=== PATIENT | male | born 1970 | race Caucasian/White ===

== ENCOUNTER 2022-09-18 16:47 | Emergency (ER) | payer MEDICAID ==
[~2022-09-18] VITALS: Ht 180.3 cm; Wt 96.6 kg
[2022-09-18 16:53] VITALS: BP 165/117
[2022-09-18] MEDS ORDERED: normal saline 1000ml 1,000 ML IV ONE (17:10)
[2022-09-18] MEDS ORDERED: ondansetron/PF 4mg/2ml inj IM ONE (17:10)
[2022-09-18] MEDS ORDERED: morphine 4 MG/ML inj SYRINge IV ONE (17:10)
[2022-09-18 17:26] LABS: BASOPHILS # (AUTO) 0.1 X10'3 (0-0.2); BASOPHILS % (AUTO) 0.9 % (0-1); EOSINOPHILS # (AUTO) 0.1 X10'3 (0-0.9); EOSINOPHILS % (AUTO) 0.6 % (0-6); HEMATOCRIT 50.6 % (42.0-52.0); HEMOGLOBIN 17.3 g/dl (14.0-17.9); LYMPHOCYTES % (AUTO) 18.4 % (21-51); MEAN CORPUSCULAR HEMOGLOBIN 30.1 PG (27.0-31.0); MEAN CORPUSCULAR HGB CONC 34.1 g/dL (33.0-36.5); MEAN CORPUSCULAR VOLUME 88.3 FL (78-98); MEAN PLATELET VOLUME 7.6 FL (7.4-10.4); NEUTROPHILS # (AUTO) 7.8 X10'3 (1.8-7.7); NEUTROPHILS % (AUTO) 71.1 % (42-75); PLATELET COUNT 262 X10'3 (140-440); RED BLOOD COUNT 5.73 X10'6 (4.70-6.10); RED CELL DISTRIBUTION WIDTH 13.8 % (11.5-14.5)
[2022-09-18 17:38] LABS: ALANINE AMINOTRANSFERASE 73 U/L (12-78); ALBUMIN 3.9 G/DL (3.4-5.0); ALBUMIN/GLOBULIN RATIO 1.1 (1.1-1.5); ALKALINE PHOSPHATASE 75 IU/L (46-116); ANION GAP 11 (8-16); ASPARTATE AMINO TRANSFERASE 31 U/L (10-37); BILIRUBIN,TOTAL 0.8 MG/DL (0.1-1.0); BLOOD UREA NITROGEN 13 MG/DL (7-18); BUN/CREATININE RATIO 13.4 (10.0-20.0); CALCIUM 9.2 MG/DL (8.5-10.1); CHLORIDE 99 MMOL/L (99-107); CREATININE 0.97 MG/DL (0.60-1.10); GLUCOSE 128 MG/DL (70-104); LIPASE 396 U/L (73-393); SODIUM 135 MMOL/L (135-145); TOTAL CARBON DIOXIDE 25.5 MMOL/L (24-32); TOTAL PROTEIN 7.5 G/DL (6.4-8.2); eGFR 81 ML/MIN
[2022-09-18] MEDS ORDERED: ONDA4TAB12 PO (18:11)
[2022-09-18] MEDS ORDERED: MAGN24002 PO (18:15)
== END 2022-09-18 18:23 | disposition home or self-care (01) ==
LOC: ER 16:49
DX: R10.32 Left lower quadrant pain (principal); R10.10 Upper abdominal pain, unspecified; R11.2 Nausea with vomiting, unspecified; F17.210 Nicotine dependence, cigarettes, uncomplicated; Z79.899 Other long term (current) drug therapy
CPT/HCPCS: 36415; 74018; 80053; 83690; 85025; 96372; 96374; 99284; J2270; J2405; J7030

== ENCOUNTER 2022-09-20 10:40 | Emergency (ER) | payer MEDICAID ==
[~2022-09-20] VITALS: Ht 180.3 cm; Wt 109.0 kg
[~2022-09-20 10:40] MED LIST: MAGN24002 PO; ONDA4TAB12 PO
[2022-09-20] MEDS ORDERED: pantoprazole 40 MG vial IV ONE (12:30)
[2022-09-20] MEDS ORDERED: morphine 4 MG/ML inj SYRINge IV ONE ×2 (12:30→13:05)
[2022-09-20] MEDS ORDERED: ondansetron/PF 4mg/2ml inj IV ONE (12:30)
[2022-09-20] MEDS ORDERED: normal saline 1000ML IV soln IVB ONE (12:30)
[2022-09-20] MEDS ORDERED: iohexol 300mg/ml 100ml inj. ONE (12:35)
[2022-09-20] MEDS ORDERED: pantoprazole 40MG/NS 100ML BAG 100 ML IV ONE (12:40)
[2022-09-20 12:56] LABS: BASOPHILS # (AUTO) 0.1 X10'3 (0-0.2); BASOPHILS % (AUTO) 0.7 % (0-1); EOSINOPHILS # (AUTO) 0.1 X10'3 (0-0.9); EOSINOPHILS % (AUTO) 1.1 % (0-6); HEMATOCRIT 51.1 % (42.0-52.0); HEMOGLOBIN 17.7 g/dl (14.0-17.9); LYMPHOCYTES # (AUTO) 1.7 X10'3 (1.1-4.8); LYMPHOCYTES % (AUTO) 16.2 % (21-51); MEAN CORPUSCULAR HEMOGLOBIN 30.7 PG (27.0-31.0); MEAN CORPUSCULAR HGB CONC 34.5 g/dL (33.0-36.5); MEAN PLATELET VOLUME 7.6 FL (7.4-10.4); MONOCYTES # (AUTO) 0.9 X10'3 (0-0.9); MONOCYTES % (AUTO) 8.3 % (2-12); NEUTROPHILS # (AUTO) 7.6 X10'3 (1.8-7.7); NEUTROPHILS % (AUTO) 73.7 % (42-75); PLATELET COUNT 251 X10'3 (140-440); RED BLOOD COUNT 5.75 X10'6 (4.70-6.10); RED CELL DISTRIBUTION WIDTH 13.8 % (11.5-14.5); WHITE BLOOD COUNT 10.4 X10'3 (4.5-11.0)
[2022-09-20 13:12] LABS: ALANINE AMINOTRANSFERASE 74 U/L (12-78); ALKALINE PHOSPHATASE 81 IU/L (46-116); AMYLASE 42 U/L (25-115); ASPARTATE AMINO TRANSFERASE 31 U/L (10-37); BILIRUBIN,TOTAL 0.5 MG/DL (0.1-1.0); GLUCOSE 101 MG/DL (70-104); LIPASE 80 U/L (73-393); TOTAL CARBON DIOXIDE 27.3 MMOL/L (24-32); TOTAL PROTEIN 7.7 G/DL (6.4-8.2)
[2022-09-20 13:32] LABS: ALBUMIN/GLOBULIN RATIO 1.1 (1.1-1.5); ANION GAP 8 (8-16); BLOOD UREA NITROGEN 15 MG/DL (7-18); BUN/CREATININE RATIO 16.7 (10.0-20.0); CHLORIDE 99 MMOL/L (99-107); POTASSIUM 4.1 MMOL/L (3.5-5.1); SODIUM 134 MMOL/L (135-145); eGFR 88 ML/MIN
[2022-09-20] MEDS ORDERED: HYDR-3965 PO (13:42)
[2022-09-20] MEDS ORDERED: OMEP40CA21 PO (13:42)
[2022-09-20] MEDS ORDERED: SUCR1ORA12 PO (13:42)
[2022-09-20 14:09] VITALS: BP 153/97
== END 2022-09-20 14:10 | disposition home or self-care (01) ==
LOC: ER 10:40
DX: K44.9 Diaphragmatic hernia without obstruction or gangrene (principal); R10.9 Unspecified abdominal pain; K21.9 Gastro-esophageal reflux disease without esophagitis
CPT/HCPCS: 36415; 74177; 80053; 82150; 83690; 85025; 96361; 96374; 96375; 96376; 99285; C9113; J2270; J2405; J3490; J7030; Q9967